=== PATIENT | male | born 1950 | race Caucasian/White ===

== ENCOUNTER → 2016-10-17 | Day surgery (SDC) | payer MEDICARE, OTHER ==
[~2016-10-17] VITALS: Ht 177.8 cm; Wt 100.7 kg
[~2016-10-17] MED LIST: ASPIRIN EC81 MG PO; FISH OIL 1,2001 EAC1 PO; FLONASE 50 MCG/16 GM NOSE; LIPITOR40 MG PO; LOPRESSOR25 MG PO; MAGNESIUM250 MG PO; NORCO 5-325 TA1 EACH PO; PRILOSEC20 MG PO; THERA-VITE W/ B1 TAB PO; VITAMIN B125000 MCG PO; ZYRTEC10 MG PO
--- NOTE | ~2016-10-17 | OR ---
PATIENT'S NAME: SELVIN MCCABE [facility] AGE: 66 Y [address] ROOM: [place] [id number] LOCATION: [facility] ADMIT DATE: 10/17/2016 OR/Procedure Report DISCHARGE DATE: FAMILY PHYSICIAN: NYDIA LANDIN MD ATTENDING PHYSICIAN: Jair Boudreaux SURGEON: Jair Boudreaux MD JEWELRY STORE MANAGER: Alisson Murphy PA-C DATE OF PROCEDURE: 10/17/2016 PREOPERATIVE DIAGNOSIS: Large, reducible, left inguinal hernia. POSTOPERATIVE DIAGNOSIS: Large, reducible, left, direct inguinal hernia. PROCEDURE PERFORMED: Robotic-assisted laparoscopic repair of reducible left inguinal hernia. ANESTHESIA: General endotracheal. ESTIMATED BLOOD LOSS: 20 mL. SPECIMENS: None. REASON FOR PROCEDURE: The patient is a 66-year-old male who has had a left inguinal hernia for a while now. It has been getting steadily larger and causing more symptoms. He has had a previous right inguinal hernia repair. After discussing options, he elected to proceed with repair of this. FINDINGS: The patient had a quite large direct defect. It was repaired with the Bard 3DMax mesh. PROCEDURE IN DETAIL: The patient was taken to the operating suite and placed in the supine position. After general endotracheal anesthesia was obtained, the abdomen was prepped with ChloraPrep and sterilely draped. Marcaine was infiltrated into the incision sites. A 1 cm incision was made approximately 5 cm above the umbilicus. The fascia was grasped and elevated, and a Veress needle was used to obtain a pneumoperitoneum. An 8 mm bladeless robotic trocar was then placed across the abdominal wall. Next, another 8 mm trocar was placed in the right upper quadrant and a 12 mm trocar in the left upper quadrant. The patient was then placed in steep Trendelenburg. The robot was docked to the trocars. We then divided the peritoneum from the medial umbilical ligament out almost to the area of the anterior-superior iliac spine. Blunt dissection with some cautery and scissors was used to create a peritoneal flap. The patient had a redundant sigmoid colon that was somewhat adherent to the lateral sidewall and the pelvis, and this did make visualization somewhat difficult. The patient had a quite impressive direct PATIENT'S NAME: SELVIN MCCABE [facility] AGE: 66 Y [address] ROOM: [place], [place] [address] LOCATION: [facility] ADMIT DATE: 10/17/2016 OR/Procedure Report DISCHARGE DATE: FAMILY PHYSICIAN: NYDIA LANDIN MD ATTENDING PHYSICIAN: Jair Boudreaux defect with a long hernia sac. It took a while, but we were eventually able to free this up and expose Edgar ligament well. The 3DMax mesh was then placed through the larger trocar and placed into the pelvis. Care was taken to make sure we overlapped the defect well. The mesh lay squarely against the abdominal wall. When we raised the peritoneum up, it did not cause any folding or creasing to the mesh. I then placed 2 Vicryl sutures through the mesh and into Edgar ligament. This proved to be quite a challenge just because of the bowel underneath this area pushing up and limiting visualization. At one point, we undocked the robot and placed the patient in steeper Trendelenburg position. We then re-docked and passed the instruments again. Once the Edgar ligament sutures were tied down, we placed another stitch in the more upper lateral portion of the mesh to the anterior abdominal wall. The peritoneum was then closed with a running absorbable V-Loc suture. Where the sigmoid had been adherent to the area, there was a defect in the peritoneum down along the low lateral portion of the dissection. We went ahead and closed this with a V-Loc suture as well. The instruments were then withdrawn. The pneumoperitoneum was evacuated, and the trocars were removed. The fascia at the 12-mm trocar site was closed with a Vicryl suture. The skin incisions were closed with subcuticular Monocryl. Benzoin, Steri-Strips, and gauze dressings were applied. POSTPROCEDURE PLAN: The patient will be sent to Recovery. We will observe him for urinary difficulties and make sure his pain is under control. We are planning on letting him go home yet today. He is given a prescription for [place]. I will see him back in the office in 2 weeks for a recheck. He is to call sooner if any problems. MD REVA MUELLER/yeyo /[id number] d: 10/17/16 1857 t: 10/20/16 1041, OPERATIVE SUMMARY
== END | disposition disaster alternative care site (69) ==
LOC: GPOC 10-15 14:00 → GSDC 06:13
PROC: 0YQ64ZZ Repair Left Inguinal Region, Percutaneous Endoscopic Approach (ICD-10-PCS; principal; 2016-10-17)
PROC: 8E0W8CZ Robotic Assisted Procedure of Trunk Region, Via Natural or Artificial Opening Endoscopic (ICD-10-PCS; 2016-10-17)
DX: K40.91 Unilateral inguinal hernia, without obstruction or gangrene, recurrent (principal); I10 Essential (primary) hypertension; K21.9 Gastro-esophageal reflux disease without esophagitis; Z88.0 Allergy status to penicillin
CPT/HCPCS: J1956; J3010; J7120